=== PATIENT | male | born 1955 | race Caucasian/White ===

== ENCOUNTER → 2016-08-12 | Day surgery (SDC) | payer BC ==
--- NOTE | 2016-08-06 19:14 | HP ---
HISTORY AND PHYSICAL: DATE OF PLANNED ADMISSION AND SURGERY: 08/12/16 HISTORY OF PRESENT ILLNESS: Mr. Marino is a 61-year-old white male, who is admitted with chronic right epididymal pain for right scrotal exploration and right epididymectomy. I first saw Mr. Marino back in January [address] Jolly because of recurrent and chronic right scrotal pain. The pain was moderate in nature, partially interfering with his physical activities. The pain would radiate to the right lower quadrant and to the right flank and was not associated with any nausea, vomiting, or changes in his voiding. He denies any history of prostatitis or urinary tract infections. There is no history of any inguinal or scrotal trauma or surgery, in particular no history of vasectomy. At his initial evaluation in my office, the patient was noted to have tender nodules in the globus major of the right epididymis. He had a scrotal ultrasound which showed bilateral small hydroceles, the testes looked normal without any testicular masses and there was some prominence of the globus major of the right epididymis. To rule out any renal pathology with radiation of the pain from the right kidney to the testis, he had bilateral renal ultrasound. This study was normal showing normal kidneys and no hydronephrosis or renal calculi. The patient was managed conservatively with scrotal elevation and with Aleve as needed for pain. On his recent evaluation, he continued to report having significant discomfort from his right epididymis interfering with his physical activities. After discussing the options of management and especially the failure of medical treatment, the patient wanted to proceed with right epididymectomy. PAST MEDICAL HISTORY AND SYSTEM REVIEW: Negative. He is in excellent health. He denies any cardiac or pulmonary diseases or symptoms. MEDICATIONS: He is on no chronic medications. ALLERGIES: He reports being allergic to PENICILLIN. FAMILY HISTORY: Negative for prostate carcinoma. SOCIAL HISTORY: The patient works as a steel die press set up operator. PHYSICAL EXAMINATION GENERAL: Pleasant, healthy, moderately overweight white male who looks otherwise fit. VITAL SIGNS: Blood pressure 140/80 (anxious). LUNGS: Clear. HEART: Regular and rhythmic. No murmurs. ABDOMEN: Soft. No masses, no tenderness, and no CVA tenderness. EXTERNAL GENITALIA: Circumcised. No penile lesions. There are moderate sized bilateral hydroceles larger on the right side. There is tenderness and prominence of the globus major of the right epididymis which seems to be the source of his pain. No testicular masses are felt. No inguinal hernias. RECTAL: Exam done earlier had shown a non-enlarged and non-suspicious prostate. LABORATORY DATA: Urinalysis is negative. IMPRESSION: Chronic right scrotal pain secondary to nodules in the globus major of the right epididymis, failing medical treatment and present for several years. PLAN: I had a long discussion with the patient regarding the options of his management. We discussed again conservative management with scrotal elevation and NSAID versus performing right epididymectomy. The patient feels that he is symptomatic enough that as he wants to proceed with the surgery. I discussed the surgery in detail. Some of the potential complications including infection and hematoma were discussed. He also understands that the procedure will result in the equivalent of a right vasectomy. He also understands that there is about 20% chance that the right scrotal pain will not resolve following the surgery. All his questions were answered. CC: Dr. Jolly * [id number]/CPS #: [id number] YANELI
[~2016-08-12] MED LIST: Buffered Lidocaine 1% SYR 3ML* 3 ML/SYR SYRINGE INTRADERM ONE; Buffered Lidocaine 1% SYR 3ML* 3 ML/SYR SYRINGE ONE; Bupivacaine 0.25% SDV* 30 ML ONE; Chloroprocaine 2%* 20 ML VIAL ONE; Dexamethasone IV* 4 MG/ML 1 ML (4 MG) IV SLOW PU ONE; Dexamethasone IV* 4 MG/ML 1 ML (4 MG) ONE; DiMENhydriNATE IV* 50 MG/ML VIAL IV PUSH PRN; Famotidine IV* 10 MG/ML 2 ML (20 mg) IV ONE; Famotidine IV* 10 MG/ML 2 ML (20 mg) ONE; HYDROmorphone INJ* 1 MG/ML CARPUJECT SYRINGE IV PRN; Ketorolac INJ* 30 MG/ML 1 ML VIAL ONE; Levofloxacin 500 MG IVPREMIX(* 500 MG/100 ML BAG IVPB ONE; Midazolam* 1 MG/ML 5 ML VIAL (5 MG) ONE; Ondansetron INJ* 2 MG/ML VIAL IV PRN; Ondansetron INJ* 2 MG/ML VIAL ONE; Propofol* 10 MG/ML 20 ML BTL IV PUSH ONE; fentaNYL* 50 MCG/ML 2 ML VIAL (100 MCG VIAL) IV PRN; fentaNYL* 50 MCG/ML 2 ML VIAL (100 MCG VIAL) ONE; oxyCODONE/Acetamin 5/325 MG* TAB ONE; oxyCODONE/Acetamin 5/325 MG* TAB PO PRN
--- NOTE | 2016-08-12 11:17 | OP ---
DATE OF OPERATION: 08/12/16 - [facility] DATE OF : 53 SURGEON: Jeff Garcia MD ANESTHESIOLOGIST: Edwin Arriola MD ANESTHESIA: Spinal. PRE-OP DIAGNOSIS: Chronic right epididymal pain. POST-OP DIAGNOSES: 1. Chronic right epididymal pain and nodule. 2. Right hydrocele. OPERATIVE PROCEDURE: 1. Right scrotal exploration. 2. Right epididymectomy. 3. Right hydrocelectomy. INDICATIONS: Mr. Marino is a 61-year-old white male who had chronic right scrotal pain present for several years. The condition has been interfering with his physical activities. Work-up showed that the pain was originating from a nodule in the globus major of the right epididymis. The patient was tried on various treatments including NSAIDS and antibiotics without improvement. Because of the above history, the chronic nature of the condition, and the failure of medical treatment, the above operation was advised and accepted. PATHOLOGY: Upon right scrotal exploration, there was a small right hydrocele. The hydrocele fluid was straw colored. Examination of the testicle showed it to be normal without any intratesticular masses. There was a prominent globus major of the epididymis with a 1 cm nodule at that level. No other abnormalities were noted. No hernia was noted. DESCRIPTION OF PROCEDURE: After successful spinal anesthesia, the patient was placed in the supine position and was prepped and draped in the usual manner. A transverse incision was carried in the mid anterior right hemiscrotum. The incision was deepened through the dartos muscle. The testicle was delivered through the incision within the tunica vaginalis. The hydrocele was noted. The hydrocele sac was opened and the fluid was drained. The testicle was delivered through the incision. The pathology in the epididymis was noted. Using cautery and sharp dissection, the plane between the globus major of the epididymis and the tunica albuginea of the testis was developed and the epididymis was dissected off the testis. Care was taken not to interfere with the blood supply to the testicle. The epididymis was dissected all the way to the level of the vas deferens where it was excised. The epididymal vessels were controlled with cautery and with suture ligatures of 4- 0 Vicryl. The bed of the epididymis was then closed using a running suture of 4-0 Vicryl achieving very good hemostasis. The hydrocele sac was then everted and approximated to itself using interrupted sutures of 4-0 Vicryl. The vascularity of the testicle looked normal. There was good hemostasis. The testis was then replaced in the scrotal cavity. A small Lacie drain was left in the cavity and brought out through a stab incision in the dependent portion of the scrotum. A total of 6 cc of 0.5% Marcaine without epinephrine was used to infiltrate the scrotal incision for postoperative analgesia. The scrotal cavity was then irrigated with saline. The scrotal incision was then closed using a running 4-0 Vicryl for the dartos muscle and interrupted 4-0 chromic for the skin. The patient tolerated the procedure well and left the operating room in good condition. The blood loss was negligible. The specimen was right epididymis. All the counts were correct. CC: Dr. Jolly * [id number]/CPS #: [id number]
[2016-08-12 11:18] VITALS: BP 134/79
== END | disposition home or self-care (01) ==
LOC: OR 06:25
PROVIDERS: ATTEND Urology
DX: N45.1 Epididymitis (principal); N43.3 Hydrocele, unspecified
CPT/HCPCS: 88304; A9270-GY; J1100; J1885; J1956; J2250; J2400; J2405; J2704; J3010